=== PATIENT | male | born 1965 | race Caucasian/White ===

== ENCOUNTER 2021-02-22 12:14 | Inpatient (IN) | payer BC, SELFPAY ==
[2021-02-22 12:15] VITALS: BP 95/59; PULSE 68; RESP 20; TEMP 36; O2SAT 98; BMI 26.4
--- NOTE | 2021-02-22 13:09 | EKG12_ITS ---
Test Reason : Blood Pressure : / mmHG Vent. Rate : 063 BPM Atrial Rate : 063 BPM P-R Int : 146 ms QRS Dur : 102 ms QT Int : 482 ms P-R-T Axes : 015 046 015 degrees QTc Int : 493 ms Normal sinus rhythm Prolonged QT Abnormal ECG Confirmed by MARK ROWLAND, JOSÉ MIGUEL ([id number]), social media editor KIMBERLI ROJAS ([id number]) on 02/25/2021 8:52:13 AM Referred By: RILEY Confirmed By:JOSÉ MIGUEL FLORES MD
--- NOTE | 2021-02-22 13:10 | EDS_ITS ---
HPI History of Present Illness Chief Complaint: Substance Abuse Informant: patient and family Narrative Narrative: 55-year-old male presenting to the emergency department stating he has had cyclical vomiting for 1 week. He states that he has been medicating himself with alcohol. The patient is either an extraordinarily poor historian or does not wish to discuss his care because he provides a very slow 1-2 word answers and incomplete answers to open ended questions. Therefore I needed to use closed ended questions to complete any type of history on him. He last had alcohol rehab in 2019 but states it was a 12-step program so he did not follow through with it. He has been drinking at least 1/5 of hard alcohol and 12 pack of beer daily. The patient states that he has Protonix at home for when he starts to have cyclic vomiting. He denies any cannabis use. [facility] Medical History (Updated 02/22/21 @ 14:[address] Daniel Lam DO) Alcoholism Cyclic vomiting syndrome Home Medications amlodipine 10 mg PO DAILY 02/22/21 [History Last Taken Unknown] aspirin [Baby Aspirin] 81 mg PO DAILY 02/22/21 [History Last Taken Unknown] clopidogrel 75 mg PO DAILY 02/22/21 [History Last Taken Unknown] losartan-hydrochlorothiazide 1 tab PO DAILY 02/22/21 [History Last Taken Unknown] metoprolol tartrate 50 mg PO BID 02/22/21 [History Last Taken Unknown] nicotine (polacrilex) 2 mg BUCCAL Q2H 02/22/21 [History Last Taken Unknown] nicotine [Nicoderm CQ] 1 patch TRANSDERMAL Q24H 02/22/21 [History Last Taken Unknown] pantoprazole 40 mg PO DAILY 02/22/21 [History Last Taken Unknown] Allergy/AdvReac Type Severity Reaction Status Date / Time No Known Allergies Allergy Verified 02/22/21 12:16 Social History (Updated 02/22/21 @ 13:[address] Daniel Lam DO) current gender identity: male Smoking Status: Current every day smoker tobacco type: cigarettes alcohol intake: current alcohol intake frequency: 3 or more drinks per day Alcohol type: beer and hard liquor substance use type: does not use ROS ROS ED Constitutional Constitutional ED: Denies chills or weight loss Eyes Eyes: Denies change in vision or diplopia ENT ENT ED: Denies ear pain, rhinorrhea or sore throat Cardiovascular Cardiovascular: Denies chest pain, orthopnea, palpitations or racing heartbeat Respiratory/Chest Respiratory/Chest: Denies cough, dyspnea or orthopnea Gastrointestinal Gastrointestinal: Reports nausea and vomiting; Denies abdominal pain or diarrhea Genitourinary Genitourinary ED: Denies dysuria, hematuria or urinary frequency Musculoskeletal Musculoskeletal: Denies arthralgias or myalgias Integumentary Denies abscess or rash Neurologic Neurologic: Denies headache(s) or weakness Psychiatric Psychiatric: Denies anxiety, depression, suicidal ideation or suicidal thoughts Endocrine Endocrinology: Denies polydipsia, polyphagia or polyuria Allergic/Immunologic Allergic/Immunologic ED: Denies mouth swelling, tongue swelling or urticaria EXAM Physical Exam Const Vital Signs: 02/22/21 12:15 02/22/21 13:25 Temperature 96.8 F L 98 F Temperature Source Temporal Temporal Pulse Rate 68 61 Respiratory Rate 20 H 20 H Blood Pressure 95/59 L 114/80 Blood Pressure Mean 71 91 Blood Pressure Source Monitor Blood Pressure Position Sitting Blood Pressure Location Left Arm Pulse Ox 98 97 Oxygen Delivery Method Room Air Room Air Positive well nourished and well developed General Appearance ED: well developed HEENT Reports normocephalic, head/scalp atraumatic, TM's clear and moist mucous membranes Negative for trauma Tympanic Membrane ED: Yes TM's clear Eyes PERRL and EOMs intact bilaterally Neck no lymphadenopathy, supple and no JVD Resp normal respiratory effort and clear to auscultation bilaterally Cardio regular rate, regular rhythm and no murmurs GI normal to inspection, nondistended, normoactive bowel sounds and non-tender Palpation: soft Back/Spine no CVA tenderness and normal ROM Extremity normal to inspection General Extremety ED: Negative for edema General Extremity: Negative for edema Neuro oriented x3 and CN's II-XII intact bilaterally Sensorium / Orientation: alert Motor Exam: strength 5/5 throughout Psych mental status grossly normal Mood & Affect: Negative for depressed or tearful Skin no rashes or lesions noted and no wounds MDM MDM MDM Narrative Medical decision making narrative: Medical screening labs show a potassium of 2.9. I ordered 40 p.o. for this. Alcohol level 306. Liver enzymes shows ALT 104 AST of 108 total bili of 1.1. Lab Data Attestation: I reviewed the patient's lab results. Labs: Laboratory Results - last 24 hr 02/22/21 02/22/21 02/22/21 13:25 13:25 13:25 WBC 7.5 RBC 5.35 Hgb 15.4 Hct 44.0 MCV 82.2 MCH 28.8 MCHC 35.0 RDW Std Deviation 41.1 RDW Coeff of Stefanie 13.8 Plt Count 232 MPV 9.9 Immature Gran % (Auto) 0.500 Neut % (Auto) 77.6 H Lymph % (Auto) 14.4 L [place] % (Auto) 6.7 Eos % (Auto) 0.0 Baso % (Auto) 0.8 Absolute Neuts (auto) 5.8 Absolute Lymphs (auto) 1.08 Nucleated RBC % 0 PT INR Sodium 126 L Potassium 2.9 L Chloride 80 L Carbon Dioxide 29.0 Anion Gap 17 H BUN 17 Creatinine 1.13 Estim Creat Clear Calc 80.52 Est GFR (MDRD) Af Amer 87 Est GFR (MDRD) Non-Af 72 BUN/Creatinine Ratio 15.0 Glucose 98 Calcium 9.2 Total Bilirubin 1.10 H AST 108 H ALT 104 H Alkaline Phosphatase 63 Total Protein 7.7 Albumin 4.1 Globulin 3.6 Albumin/Globulin Ratio 1.1 Ethyl Alcohol 306.0 H* 02/22/21 13:50 WBC RBC Hgb Hct MCV MCH MCHC RDW Std Deviation RDW Coeff of Stefanie Plt Count MPV Immature Gran % (Auto) Neut % (Auto) Lymph % (Auto) [place] % (Auto) Eos % (Auto) Baso % (Auto) Absolute Neuts (auto) Absolute Lymphs (auto) Nucleated RBC % PT 12.1 INR 1.0 Sodium Potassium Chloride Carbon Dioxide Anion Gap BUN Creatinine Estim Creat Clear Calc Est GFR (MDRD) Af Amer Est GFR (MDRD) Non-Af BUN/Creatinine Ratio Glucose Calcium Total Bilirubin AST ALT Alkaline Phosphatase Total Protein Albumin Globulin Albumin/Globulin Ratio Ethyl Alcohol EKG Initial EKG: Attestation: I personally reviewed and interpreted this EKG as follows: Comments: Normal sinus rhythm with a ventricular rate of 63. Noted QT Discharge Plan Dx/Rx/DC Orders Clinical Impression: Acute hypokalemia, Cyclic vomiting syndrome, Alcohol intoxication Disposition Disposition: [facility]
[2021-02-22 13:25] VITALS: BP 114/80; PULSE 61; RESP 20; TEMP 36.6; O2SAT 97
[2021-02-22] MEDS: 0.9% Normal Saline 1,000 ML 999 ML IV (13:31)
[2021-02-22] MEDS: Ondansetron 4 MG/2 ML Vial IV ×2 (13:31→17:03)
[2021-02-22] MEDS: LORazepam 2 MG/ML Syringe 1 MG IV (13:32)
[2021-02-22 13:44] LABS: Absolute Lymphocyte Count 1.08 X10^3/uL (0.83-4.51); Absolute Neutrophil Count 5.8 X10^3/uL (2.0-7.7); Basophil# 0.06 X10^3/uL; Basophil% 0.8 % (0-1); Hemoglobin 15.4 g/dL (13.0-16.5); Lymphocyte # 1.08 X10^3/ul (0.83-4.51); Lymphocyte % 14.4 % (19-41); Mean Corpuscular Hgb 28.8 pg (27.0-32.0); Mean Corpuscular Volume 82.2 fL (80-94); Mean Platelet Vol. 9.9 fl (6.2-12.0); Monocyte% 6.7 % (0-10); NRBC Flagged by Analyzer 0 % (0-5); Neutrophil # 5.81 X10^3/uL (2.7-7.7); Neutrophil % 77.6 % (47-70); Platelet Count 232 K/mm3 (150-450); RBC Distribution Width CV 13.8 % (11.6-14.6); RBC Distribution Width SD 41.1 fl (35.1-43.9); Red Blood Count 5.35 M/mm3 (4.6-6.2); White Blood Count 7.5 K/mm3 (4.4-11.0)
[2021-02-22 14:01] LABS: ALB/GLOB Ratio 1.1 RATIO (0.9-2.4); AST(SGOT) 108 U/L (15-37); Alanine Aminotransfer ALT/SGPT 104 U/L (16-61); Albumin, Serum 4.1 g/dL (3.2-5.0); Alkaline Phosphatase 63 U/L (45-117); Anion Gap 17 (5-15); BUN 17 mg/dL (7-18); Calcium,Total 9.2 mg/dL (8.5-10.1); Chloride 80 mmol/L (98-107); Creatinine, Serum 1.13 mg/dL (0.70-1.30); EST Glomerular Filtration Rate 72 mL/min (>60); Est Glom Filt Rate - Afr Amer 87 mL/min (>60); Estimated Creatinine Clearance 80.52 ml/min; Globulin 3.6 g/dL (2.2-4.2); Glucose 98 mg/dL (74-106); Potassium 2.9 mmol/L (3.5-5.1); Protein, Total 7.7 g/dL (6.4-8.2); Sodium Level 126 mmol/L (136-145)
[2021-02-22 14:06] LABS: Prothrombin Time (Protime)PT. 12.1 SECONDS (11.7-14.9)
[2021-02-22] MEDS: Potassium Chloride Oral Tablet 20 MEQ 40 MEQ PO ×2 (14:40→22:42)
[2021-02-22 14:42] VITALS: PULSE 80; RESP 16; O2SAT 93
[2021-02-22 14:43] VITALS: BP 143/76; PULSE 74; RESP 18; TEMP 36.6; O2SAT 98
--- NOTE | 2021-02-22 14:51 | HP.PCM.HOS_ITS ---
HPI - General General Date of Admission: 02/22/21 Date of Service: 02/22/21 Chief Complaint: Alcohol detox HPI Narrative Mr. CALHOUN, is a 55 M who presented to the emergency department at [facility] on 02/22/2021 with a chief complaint of nausea and vomiting requesting acute alcohol detox. The patient states he also has a history of cyclic vomiting syndrome and has been vomiting and not eaten for approximately a week. He does however indicate he has been drinking daily and as of recently has been drinking at least 1/5 of gin and a half a 12 pack of 12 ounce beers daily. He has been through detox 4 times previously with the most recent being at [facility] 2 years ago after which he sustained approximately 8 months of sobriety. He states he has a family history of alcoholism in both his father and grandfather. His last drink was at 11 AM today. He reports he smokes approximately 1 pack of cigarettes a day but denies any other substance abuse. In the emergency department his vital signs are stable other than some mild elevated blood pressure. His CBC is unremarkable. His BMP shows hyponatremia with a sodium of 126, hypokalemia with a potassium of 2.9, hypochloremia with a chloride of 80, and an elevated anion gap with a normal serum creatinine. Transaminases are elevated with an AST of 108 and an ALT of 104 and a normal alk phos. His bilirubin is mildly elevated at 1.1. His serum alcohol level was 306.0. He will be admitted to medical surgical for acute alcohol detox. [facility] Medical History Alcoholism CAD (coronary artery disease) Cyclic vomiting syndrome GERD (gastroesophageal reflux disease) HTN (hypertension) Tobacco abuse Home Medications amlodipine 10 mg PO DAILY 02/22/21 [History Last Taken Unknown] aspirin [Baby Aspirin] 81 mg PO DAILY 02/22/21 [History Last Taken Unknown] clopidogrel 75 mg PO DAILY 02/22/21 [History Last Taken Unknown] losartan-hydrochlorothiazide 1 tab PO DAILY 02/22/21 [History Last Taken Unknown] metoprolol tartrate 50 mg PO BID 02/22/21 [History Last Taken Unknown] nicotine (polacrilex) 2 mg BUCCAL Q2H 02/22/21 [History Last Taken Unknown] nicotine [Nicoderm CQ] 1 patch TRANSDERMAL Q24H 10/23/21 [History Last Taken Unknown] pantoprazole 40 mg PO DAILY 02/22/21 [History Last Taken Unknown] Allergy/AdvReac Type Severity Reaction Status Date / Time No Known Allergies Allergy Verified 02/22/21 12:16 Family History (Updated 02/22/21 @ 14:[address] Darshana Donnelly, DO) Father Alcoholism Grandfather Alcoholism Other Diabetes Heart disease Hypertension no surgical history Social History (Updated 02/22/21 @ 14:[address] Darshana Donnelly, DO) current gender identity: male Smoking Status: Current every day smoker tobacco type: cigarettes alcohol intake: current alcohol intake frequency: 3 or more drinks per day Alcohol type: beer and hard liquor details: 1/5 of gin and 1/ 12 pack of beer daily substance use type: does not use ROS Constitutional Constitutional: Reports anorexia, fatigue, malaise and weakness; Denies change in weight, chills, fever(s), night sweats or other Eyes Eyes: Denies blurry vision, change in eye color, change in vision, discharge from eye(s), double vision, erythema, eye pain, loss of vision or other ENT HEENT: Denies abnormal hearing, dysphagia, ear pain, epistaxis, headache(s), hearing loss, nasal congestion, nasal discharge, post nasal drip, sinus pressur e, sore throat or other Cardiovascular Cardiovascular: Denies chest pain, claudication, dyspnea on exertion, edema, lightheadedness, orthopnea, palpitations, paroxysmal nocturnal dyspnea, rapid heart rate, syncope or other Respiratory/Chest Respiratory/Chest: Denies cough, dyspnea, excessive phlegm production, hemoptysis, productive cough, shortness of breath at rest, shortness of breath with exertion, wheezing or other Gastrointestinal Gastrointestinal: Reports nausea and vomiting; Denies abdominal pain, coffee ground emesis, constipation, diarrhea, dyspepsia, hematemesis, hematochezia, loose stools, melena or other Genitourinary Genitourinary: Denies burning urination, difficulty urinating, dysuria, hematuria, nocturia, urinary frequency, urinary hesitancy, urinary incontinence, urinary urgency or other Musculoskeletal Musculoskeletal: Denies arthralgias, back pain, joint pain, joint stiffness, j oint swelling, myalgias, neck pain or other Neurologic Neurologic: Denies abnormal gait, abnormal speech, confusion, disequilibrium, dizziness, focal weakness, headache(s), numbness, paresthesias, seizure-like activity, seizures, syncope, tingling, tremor(s) or other Psychiatric Psychiatric: Denies anxiety, depression, homicidal ideation, suicidal ideation or other Endocrine Endocrinology: Denies change in body appearance, cold intolerance, excessive sweating, heat intolerance, polydipsia, polyuria or other Hematologic/Lymphatic Hematologic/Lymphatic: Denies anemia, easy bleeding, easy bruising, lymph adenopathy or other Allergic/Immunologic Allergic/Immunologic: Denies rhinitis, hives, eczemia, asthma or other Vital Signs Vital Signs Vital Signs: 02/22/21 12:15 02/22/21 13:25 02/22/21 14:42 Temperature 96.8 F L 98 F Temperature Source Temporal Temporal Pulse Rate 68 61 80 Respiratory Rate 20 H 20 H 16 Blood Pressure 95/59 L 114/80 Blood Pressure Mean 71 91 Blood Pressure Source Monitor Blood Pressure Position Sitting Blood Pressure Location Left Arm Pulse Ox 98 97 93 Oxygen Delivery Method Room Air Room Air Room Air 02/22/21 14:43 Temperature 98 F Temperature Source Oral Pulse Rate 74 Respiratory Rate 18 Blood Pressure 143/76 H Blood Pressure Mean 98 Blood Pressure Source Blood Pressure Position Blood Pressure Location Pulse Ox 98 Oxygen Delivery Method Room Air Weight Weight: 86.183 kg Body Mass Index (BMI) 26.4 Physical Exam Const alert, oriented x3 and no apparent distress Constitutional Narrative: Middle-aged white male sitting up in bed, appears older than stated age, nontoxic General Appearance: cooperative HEENT normocephalic, head/scalp atraumatic, hearing grossly normal bilaterally, moist oral mucous membranes and oropharynx normal HEENT Narrative: Fair dentition with multiple fillings Mouth: oral and palatal mucosa normal Eyes PERRL, EOMs intact bilaterally and conjunctivae normal Eyes Narrative: Eyes are bloodshot, no scleral icterus Neck no lymphadenopathy, supple, no JVD and no carotid bruits Neck Narrative: Trachea midline with no thyroid enlargement Resp normal respiratory effort, no retractions, no use of accessory muscles and clear to auscultation bilaterally Resp Narrative: Diminished but clear Auscultation: Negative for crackles, rales, rhonchi or wheezes Cardio regular rate, regular rhythm, S1 normal heart sound, S2 normal heart sound, no murmurs, no rub, no gallops, no clicks and no JVD GI normal to inspection, nondistended, normoactive bowel sounds, soft to palpation, non-tender and non-distended; Negative for hepatosplenomegaly Extremity no clubbing, cyanosis or edema Peripheral Pulses: Yes pulses 2+ throughout Skin no rashes or lesions noted, no wounds, skin turgor normal, no jaundice, no petechiae and no mottling Neuro oriented x3, CN's II-XII intact bilaterally, moves all extremities and no focal motor deficits Sensorium / Orientation: alert, oriented to person, oriented to place and oriented to time Speech: speech normal Motor Exam: strength 5/5 throughout Psych affect normal Results Lab / Micro Data Attestation: I reviewed the patient's lab results. Result Diagrams: 02/22/21 13:25 02/22/21 13:25 Labs: Laboratory Results - last 24 hr 02/22/21 13:25: WBC 7.5, RBC 5.35, Hgb 15.4, Hct 44.0, MCV 82.2, MCH 28.8, MCHC 35.0, RDW Std Deviation 41.1, RDW Coeff of Stefanie 13.8, Plt Count 232, MPV 9.9, Immature Gran % (Auto) 0.500, Neut % (Auto) 77.6 H, Lymph % (Auto) 14.4 L, [place] % (Auto) 6.7, Eos % (Auto) 0.0, Baso % (Auto) 0.8, Absolute Neuts (auto) 5.8, Absolute Lymphs (auto) 1.08, Nucleated RBC % 0 02/22/21 13:25: Sodium 126 L, Potassium 2.9 L, Chloride 80 L, Carbon Dioxide 29.0, Anion Gap 17 H, BUN 17, Creatinine 1.13, Estim Creat Clear Calc 80.52, Est GFR (MDRD) Af Amer 87, Est GFR (MDRD) Non-Af 72, BUN/Creatinine Ratio 15.0, Glucose 98, Calcium 9.2, Total Bilirubin 1.10 H, AST 108 H, ALT 104 H, Alkaline Phosphatase 63, Total Protein 7.7, Albumin 4.1, Globulin 3.6, Albumin/Globulin Ratio 1.1 02/22/21 13:25: Ethyl Alcohol 306.0 H* 02/22/21 13:50: PT 12.1, INR 1.0 Assessment & Plan Assessment/Plan (1) Alcohol withdrawal: (2) Alcohol intoxication: (3) Alcoholic hepatitis: (4) Acute hypokalemia: (5) Hyponatremia: (6) Increased anion gap metabolic acidosis: (7) Cyclic vomiting syndrome: PLAN: Acute alcohol withdrawal -Start phenobarbital taper -Thiamine and folate -[facility] protocol with as needed oral Ativan -Patient was acutely intoxicated on admission with a blood alcohol level of 306 -180 consultation for Wednesday Acute alcoholic hepatitis -Anticipate LFT should improve with abstinence -Repeat in a.m. Acute hyponatremia/hypochloremia -P.o. intake has been poor and suspect this is hypovolemic hyponatremia -May also have some baseline hyponatremia from beer [place] -IV fluids with LR at 100 cc/h -Repeat lab in a.m. -If sodium remains low despite IV fluids may need to consider discontinuing hydrochlorothiazide -Patient without any neurological manifestations of hyponatremia Acute hyponatremia -40 mEq of p.o. potassium was given in the emergency department -We will dose another 40 mEq on the medical floor this evening -Repeat lab in a.m. -Check a.m. magnesium level Elevated anion gap -Anion gap elevation is likely related to this-->-Blood alcohol level was 306 on admission -We will repeat in a.m. -IV fluids -Patient denies drinking anything except ethyl alcohol Hypertension -Continue home amlodipine -Continue losartan and hydrochlorothiazide -May need to adjust and discontinue HCTZ if sodium remains low -Continue home metoprolol CAD -Continue aspirin/Plavix -Continue metoprolol and losartan Cyclical vomiting syndrome/GERD -Continue Protonix -If vomiting is a persistent issue here may consider GI consult -Patient has been able to drink alcohol but states he is not been able to eat food -Is high risk for esophageal disorders including esophageal carcinoma with his history of tobacco and alcohol abuse DVT prophylaxis -Early ambulation protocol CODE STATUS -Full code Charges/Coding Visit Charges Inpatient E&M: 61544 Init Hosp L3
[2021-02-22 15:19] VITALS: BMI 26.7
--- NOTE | 2021-02-22 15:19 | PCS.PANDOC ---
PANDEMIC DOCUMENTATION INITIATED: Date: 12/16/2020 Time: 190
[2021-02-22 15:48] VITALS: O2SAT 94
[2021-02-22] MEDS: Phenobarbital 32.4 MG Tablet 64.8 MG PO ×2 (16:58→20:20)
[2021-02-22] MEDS: Lactated Ringers 1,000 ML 100 ML IV (17:03)
[2021-02-22] MEDS: 0.9% Saline Lock 10 ML Syringe IV (17:04)
[2021-02-22] MEDS: Dicyclomine 10 MG Capsule 20 MG PO (17:35)
[2021-02-22] MEDS: LORazepam 1 MG Tablet 2 MG PO (17:35)
[2021-02-22 20:13] VITALS: BP 108/71; PULSE 88; RESP 18; TEMP 36.6; O2SAT 100
[2021-02-22] MEDS: Gabapentin 300 MG Capsule PO (20:25)
[2021-02-22 20:55] LABS: Amphetamine Urine VISTA NEGATIVE (<1000 ng/mL); Barbiturate Urine VISTA NEGATIVE (< 200 ng/mL); Benzodiazepine Urine VISTA NEGATIVE (< 200 ng/mL); Cocaine Urine VISTA NEGATIVE (< 300 ng/mL); Ecstacy Urine VISTA NEGATIVE (< 500 ng/mL); Methadone Urine VISTA NEGATIVE (< 300 ng/mL); PCP Urine VISTA NEGATIVE (< 25 ng/mL); THC Urine VISTA NEGATIVE (< 50 ng/mL); Vista UDS pH Range 6
[2021-02-22] MEDS: Mag Hydrox/Al Hydrox/Simeth 30 ML UDC 15 ML PO (22:42)
[2021-02-22] MEDS: traZODone 100 MG Tablet PO (22:47)
[2021-02-23] VITALS (8 sets, daily range): BP systolic 141–162; BP diastolic 71–98; PULSE 69–95; RESP 16–18; TEMP 36.6–37.1; O2SAT 92–99
[2021-02-23] MEDS: Phenobarbital 32.4 MG Tablet 64.8 MG PO ×6 (00:40→19:54)
[2021-02-23] MEDS: Lactated Ringers 1,000 ML 100 ML IV (02:42)
[2021-02-23 07:21] LABS: AST(SGOT) 133 U/L (15-37); Alanine Aminotransfer ALT/SGPT 107 U/L (16-61); Albumin, Serum 3.1 g/dL (3.2-5.0); Alkaline Phosphatase 52 U/L (45-117); Anion Gap 8 (5-15); BUN 13 mg/dL (7-18); BUN/Creat Ratio 17.3 RATIO (10-20); Calcium,Total 8.2 mg/dL (8.5-10.1); Chloride 85 mmol/L (98-107); Creatinine, Serum 0.75 mg/dL (0.70-1.30); EST Glomerular Filtration Rate 116 mL/min (>60); Est Glom Filt Rate - Afr Amer 140 mL/min (>60); Estimated Creatinine Clearance 121.32 ml/min; Glucose 104 mg/dL (74-106); Magnesium 2.2 mg/dL (1.6-2.6); Phosphorus 2.8 mg/dL (2.5-4.9); Potassium 3.1 mmol/L (3.5-5.1); Protein, Total 6.1 g/dL (6.4-8.2); Sodium Level 125 mmol/L (136-145); Thyroid Stim Hormone (TSH) 1.14 uIU/mL (0.358-3.74)
[2021-02-23] MEDS: Folic Acid 1 MG Tablet PO (08:47)
[2021-02-23] MEDS: Pantoprazole Sodium 40 MG Tablet PO (08:47)
[2021-02-23] MEDS: Thiamine Hydrochloride 100 MG Tablet PO (08:47)
[2021-02-23] MEDS: Losartan Potassium 100 MG Tablet PO (11:05)
[2021-02-23] MEDS: Clopidogrel Bisulfate 75 MG Tablet PO (11:05)
[2021-02-23] MEDS: Metoprolol Tartrate 50 MG Tablet PO ×2 (11:05→21:56)
[2021-02-23] MEDS: hydroCHLOROthiazide 25 MG Tablet PO (11:05)
[2021-02-23] MEDS: amLODIPine 10 MG Tablet PO (11:05)
[2021-02-23] MEDS: Aspirin 81 MG TAB.CHEW PO (11:06)
[2021-02-23] MEDS: Nicotine Polacrilex 2 MG GUM PO ×4 (11:07→19:54)
--- NOTE | 2021-02-23 11:26 | PN.HOSP_ITS ---
Subjective Subjective Patient states he is feeling well. Has no signs of withdrawal at this time. Denies any abdominal pain, nausea, or vomiting currently. Denying any needs or complaints currently. Objective Data Objective Data Vital Signs: Vital Signs Temp Pulse Resp BP Pulse Ox 97.8 F 95 16 159/87 H 92 02/23/21 08:54 02/23/21 11:05 02/23/21 08:54 02/23/21 08:54 02/23/21 08:54 Oxygen Delivery Method Room Air Weight: 87.1 kg Body Mass Index (BMI) 26.7 Intake & Output: Intake and Output for Last 24 Hours 02/21/21 02/22/21 02/23/21 23:59 23:59 23:59 Intake Total 1200 / 1200 2064 Balance 1200 / 1200 2064 Lab / Micro Data Result Diagrams: 02/22/21 13:25 02/23/21 06:43 Labs: Laboratory Results - last 24 hr 02/22/21 13:25: WBC 7.5, RBC 5.35, Hgb 15.4, Hct 44.0, MCV 82.2, MCH 28.8, MCHC 35.0, RDW Std Deviation 41.1, RDW Coeff of Stefanie 13.8, Plt Count 232, MPV 9.9, Immature Gran % (Auto) 0.500, Neut % (Auto) 77.6 H, Lymph % (Auto) 14.4 L, [place] % (Auto) 6.7, Eos % (Auto) 0.0, Baso % (Auto) 0.8, Absolute Neuts (auto) 5.8, Absolute Lymphs (auto) 1.08, Nucleated RBC % 0 02/22/21 13:25: Sodium 126 L, Potassium 2.9 L, Chloride 80 L, Carbon Dioxide 29.0, Anion Gap 17 H, BUN 17, Creatinine 1.13, Estim Creat Clear Calc 80.52, Est GFR (MDRD) Af Amer 87, Est GFR (MDRD) Non-Af 72, BUN/Creatinine Ratio 15.0, Glucose 98, Calcium 9.2, Total Bilirubin 1.10 H, AST 108 H, ALT 104 H, Alkaline Phosphatase 63, Total Protein 7.7, Albumin 4.1, Globulin 3.6, Albumin/Globulin Ratio 1.1 02/22/21 13:25: Ethyl Alcohol 306.0 H* 02/22/21 13:50: PT 12.1, INR 1.0 02/22/21 20:10: Urine Opiates Screen NEGATIVE, Urine Methadone Screen NEGATIVE, Ur Barbiturates Screen NEGATIVE, Ur Phencyclidine Scrn NEGATIVE, Ur Amphetamines Screen NEGATIVE, U Methamphetamin-MDMA NEGATIVE, U Benzodiazepines Scrn NEGATIVE, Urine Cocaine Screen NEGATIVE, U Cannabinoids Screen NEGATIVE, Ur Drug Screen Comment 02/23/21 06:43: Sodium 125 L, Potassium 3.1 L, Chloride 85 L, Carbon Dioxide 32.0, Anion Gap 8, BUN 13, Creatinine 0.75, Estim Creat Clear Calc 121.32, Est GFR (MDRD) Af Amer 140, Est GFR (MDRD) Non-Af 116, BUN/Creatinine Ratio 17.3, Glucose 104, Calcium 8.2 L, Phosphorus 2.8, Magnesium 2.2, Total Bilirubin 1.70 H, AST 133 H, ALT 107 H, Alkaline Phosphatase 52, Total Protein 6.1 L, Albumin 3.1 L, Globulin 3.0, Albumin/Globulin Ratio 1.0, TSH 1.14 Physical Exam Const alert, oriented x3 and no apparent distress Constitutional Narrative: Middle-aged white male lying down in bed, nursing at bedside, appears older than stated age, nontoxic and appears comfortable General Appearance: cooperative Exam Limitations: no limitations Nutritional Appearance: overweight HEENT normocephalic, head/scalp atraumatic, hearing grossly normal bilaterally and moist oral mucous membranes Head and Scalp: normocephalic Resp normal respiratory effort, no retractions, no use of accessory muscles and clear to auscultation bilaterally Resp Narrative: Diminished but clear Auscultation: Negative for crackles, rales, rhonchi or wheezes Cardio regular rate, regular rhythm, S1 normal heart sound, S2 normal heart sound, no m urmurs, no rub, no gallops, no clicks and no JVD GI normal to inspection, nondistended, normoactive bowel sounds, soft to palpation, non-tender and non-distended; Negative for hepatosplenomegaly Extremity no clubbing, cyanosis or edema Peripheral Pulses: Yes pulses 2+ throughout Neuro oriented x3 and moves all extremities Sensorium / Orientation: alert Speech: speech normal Assessment & Plan Assessment/Plan (1) Alcohol withdrawal: (2) Alcohol intoxication: (3) Alcoholic hepatitis: (4) Acute hypokalemia: (5) Hyponatremia: (6) Increased anion gap metabolic acidosis: (7) Cyclic vomiting syndrome: PLAN: Acute alcohol withdrawal -phenobarbital taper -Thiamine and folate -[facility] protocol with as needed oral Ativan -Patient was acutely intoxicated on admission with a blood alcohol level of 306 -180 consultation is pending for tomorrow Acute alcoholic hepatitis -Anticipate LFT should improve with abstinence -Slight increase in last 24 hours with bilirubin up as well -We will repeat in a.m. and if LFTs remain elevated may need to consider hepatitis studies Acute hyponatremia/hypochloremia -P.o. intake has been poor and suspect this is hypovolemic hyponatremia -May also have some baseline hyponatremia from beer pot[place]ia -Discontinue IV fluids -Hold hydrochlorothiazide -Check TSH, urine and serum osmolality, urine sodium, uric acid for further work-up -If laboratory data consistent with SIADH will start a fluid restriction -Repeat BMP -Patient without any neurological manifestations of hyponatremia Acute hypokalemia -patient received 80 mEq of potassium yesterday -We will repeat 80 mEq today and repeat lab in a.m. -Repeat lab in a.m. -Mag levels within normal limits Elevated anion gap -Resolved -Secondary to acute ethyl alcohol intoxication on admission Hypertension -Continue home amlodipine -Continue losartan but will stop hydrochlorothiazide given continued hyponatremia -Will not add anything at this time but may need to consider depending on blood pressures -Continue home metoprolol PVD -Patient has had stents placed in his leg arteries in the past -Continue aspirin/Plavix -Continue metoprolol and losartan Cyclical vomiting syndrome/GERD -Continue Protonix -If vomiting is a persistent issue here may consider GI consult--> so far patient has had no abdominal pain nausea or vomiting since admission -Patient has been able to drink alcohol but states he is not been able to eat f ood -Is high risk for esophageal disorders including esophageal carcinoma with his history of tobacco and alcohol abuse DVT prophylaxis -Early ambulation protocol CODE STATUS -Full code
[2021-02-23 12:49] LABS: Uric Acid 5.4 mg/dL (3.5-7.2)
[2021-02-23 12:52] LABS: Osmolality, Serum 266 mOsm/KG (275-295)
[2021-02-23 13:41] LABS: Osmolality, Urine 235 mOsm/KG
[2021-02-23 13:42] LABS: Urine Sodium 70 mmol/L (Not Establ.)
[2021-02-23] MEDS: Potassium Chloride Oral Tablet 20 MEQ 40 MEQ PO (17:22)
[2021-02-23] MEDS: LORazepam 1 MG Tablet 2 MG PO (17:30)
[2021-02-23] MEDS: Mag Hydrox/Al Hydrox/Simeth 30 ML UDC 15 ML PO (17:34)
--- NOTE | 2021-02-23 18:57 | NURSING ---
spoke with mother for an update. according to pt and mom- pt needs to call work on wednesday to let them know of him not coming in. pt works at [employer] in [place]. pt and family does not have the number- it is in pts phone that is locked in the totes. pt also needs to d/c by 12 on d/t the fact he has to get his daughter of the bus.
[2021-02-24] MEDS: Phenobarbital 32.4 MG Tablet 64.8 MG PO ×4 (00:26→12:22)
[2021-02-24 03:08] VITALS: BP 153/92; PULSE 63; RESP 18; TEMP 36.6; O2SAT 92
[2021-02-24] MEDS: Potassium Chloride Oral Tablet 20 MEQ 40 MEQ PO (08:08)
[2021-02-24] MEDS: Aspirin 81 MG TAB.CHEW PO (08:08)
[2021-02-24] MEDS: Folic Acid 1 MG Tablet PO (08:08)
[2021-02-24 08:09] LABS: AST(SGOT) 125 U/L (15-37); Alanine Aminotransfer ALT/SGPT 124 U/L (16-61); Albumin, Serum 3.2 g/dL (3.2-5.0); Alkaline Phosphatase 60 U/L (45-117); Anion Gap 8 (5-15); BUN 7 mg/dL (7-18); BUN/Creat Ratio 9.5 RATIO (10-20); Bilirubin, Direct 0.38 mg/dL (0.00-0.30); Calcium,Total 8.4 mg/dL (8.5-10.1); Chloride 89 mmol/L (98-107); Creatinine, Serum 0.74 mg/dL (0.70-1.30); EST Glomerular Filtration Rate 118 mL/min (>60); Est Glom Filt Rate - Afr Amer 142 mL/min (>60); Estimated Creatinine Clearance 122.96 ml/min; Globulin 2.6 g/dL (2.2-4.2); Glucose 94 mg/dL (74-106); Potassium 3.4 mmol/L (3.5-5.1); Protein, Total 5.8 g/dL (6.4-8.2); Sodium Level 129 mmol/L (136-145); Thyroid Stim Hormone (TSH) 1.85 uIU/mL (0.358-3.74)
[2021-02-24] MEDS: Thiamine Hydrochloride 100 MG Tablet PO (08:09)
[2021-02-24] MEDS: Nicotine Polacrilex 2 MG GUM PO ×2 (08:11→14:49)
[2021-02-24] MEDS: hydrOXYzine PAM 25 MG Capsule 50 MG PO (08:12)
[2021-02-24 10:02] VITALS: PULSE 74
[2021-02-24] MEDS: Losartan Potassium 100 MG Tablet PO (10:02)
[2021-02-24] MEDS: Clopidogrel Bisulfate 75 MG Tablet PO (10:02)
[2021-02-24] MEDS: Pantoprazole Sodium 40 MG Tablet PO (10:02)
[2021-02-24] MEDS: amLODIPine 10 MG Tablet PO (10:02)
[2021-02-24] MEDS: Metoprolol Tartrate 50 MG Tablet PO (10:02)
[2021-02-24 10:36] VITALS: BP 159/95; PULSE 84; RESP 18; TEMP 36.7; O2SAT 94
--- NOTE | 2021-02-24 12:33 | PCM.DC.SUM ---
Providers Date of Admission: 02/22/21 Date of Discharge: 02/24/21 Primary Care Physician: Dr. Tarun Arechiga MD Reason For Visit: ETOH DETOX Diagnosis Discharge Diagnosis (1) Alcohol withdrawal: Status: Acute Code(s): F10.239 - Alcohol dependence with withdrawal, unspecified Qualifiers: Complication of substance-induced condition: uncomplicated Qualified Code(s): F10.230 - Alcohol dependence with withdrawal, uncomplicated (2) Alcohol intoxication: Status: Acute Code(s): F10.929 - Alcohol use, unspecified with intoxication, unspecified Qualifiers: Complication of substance-induced condition: uncomplicated Qualified Code(s): F10.920 - Alcohol use, unspecified with intoxication, uncomplicated (3) Alcoholic hepatitis: Status: Acute Code(s): K70.10 - Alcoholic hepatitis without ascites Qualifiers: Ascites presence: unspecified Qualified Code(s): K70.10 - Alcoholic hepatitis without ascites (4) Acute hypokalemia: Status: Acute Code(s): E87.6 - Hypokalemia (5) Hyponatremia: Status: Acute Code(s): E87.1 - Hypo-osmolality and hyponatremia (6) Increased anion gap metabolic acidosis: Status: Acute Code(s): E87.2 - Acidosis (7) Cyclic vomiting syndrome: Status: Acute Code(s): R11.15 - Cyclical vomiting syndrome unrelated to migraine Medications at Discharge Home Medications amlodipine 10 mg PO DAILY 02/22/21 aspirin [Baby Aspirin] 81 mg PO DAILY 02/22/21 clopidogrel 75 mg PO DAILY 02/22/21 losartan-hydrochlorothiazide 1 tab PO DAILY 02/22/21 metoprolol tartrate 50 mg PO BID 02/22/21 nicotine (polacrilex) 2 mg BUCCAL Q2H 02/22/21 nicotine [Nicoderm CQ] 1 patch TRANSDERMAL Q24H 02/22/21 pantoprazole 40 mg PO DAILY 02/22/21 Hospital Course Operations None Procedures None Summary of Care Provided Minutes Spent on Discharge: 25 Hospital Course: 55-year-old male with past medical history of chronic alcohol use disorder, hypertension who presents with nausea and vomiting and requested for acute alcohol detox. Patient stated that he has history of cyclical vomiting syndrome and has been vomiting for most a week. He has been drinking daily, about 1/5 of gin and half of 12 pack of 12 ounce beers daily. He was found to have hyponatremia sodium 126, potassium was 2.9, chloride of 80. His transaminases were slightly elevated. His admitting alcohol level was 306. Patient was admitted to the [facility] floor and managed on acute alcohol withdrawal protocol. Patient had his electrolytes replaced. His liver enzymes were monitored and appeared to be decreasing with abstinence from alcohol. Patient was seen in the day of his discharge. He refused to work with the addiction counselor. He signed out AGAINST MEDICAL ADVICE. Physical Exam Narrative See progress note of the day Weight / BMI Weight Weight: 87.1 kg Body Mass Index (BMI) 26.7 ABG / Lab / Microbiology Data Result Diagrams: 02/22/21 13:25 02/24/21 05:42 Laboratory: Laboratory Results - last 24 hr 02/24/21 05:42: Sodium 129 L, Potassium 3.4 L, Chloride 89 L, Carbon Dioxide 32.0, Anion Gap 8, BUN 7, Creatinine 0.74, Estim Creat Clear Calc 122.96, Est GFR (MDRD) Af Amer 142, Est GFR (MDRD) Non-Af 118, BUN/Creatinine Ratio 9.5 L, Glucose 94, Calcium 8.4 L, Total Bilirubin 0.90, Direct Bilirubin 0.38 H, AST 125 H, ALT 124 H, Alkaline Phosphatase 60, Total Protein 5.8 L, Albumin 3.2, Globulin 2.6, TSH 1.85 Meaningful Use Info Meaningful Use Diagnoses (Choose all that apply): None applicable Discharge Plan Admission Admit Date/Time: 02/22/21 14:27 Attending Provider: Lu Rodney Primary Care Provider: Tarun Arechiga Discharge Orders/Prescriptions Prescriptions: No Action nicotine (polacrilex) 2 mg Gum 2 mg BUCCAL Q2H RF: 0 clopidogrel 75 mg tablet 75 mg PO DAILY RF: 0 losartan-hydrochlorothiazide 100-25 mg tablet 1 tab PO DAILY RF: 0 amlodipine 10 mg tablet 10 mg PO DAILY RF: 0 pantoprazole 40 mg tablet,delayed release (DR/EC) 40 mg PO DAILY RF: 0 metoprolol tartrate 50 mg tablet 50 mg PO BID RF: 0 nicotine [Nicoderm CQ] 21 mg/24 hr Patch 24 Hour 1 patch TRANSDERMAL Q24H RF: 0 aspirin [Baby Aspirin] 81 mg Tablet,Chewable 81 mg PO DAILY RF: 0 Referrals / Follow Up: Tarun Arechiga MD [Primary Care Provider] - [facility] Doctor,Out of [NON-STAFF] - Disposition Disposition (needs filled in before D/C Order can be placed): Against Medical Advice Charges/Coding Visit Charges Inpatient E&M: 84740 Disch Hosp
--- NOTE | 2021-02-24 13:04 | PN.HOSP_ITS ---
Subjective Subjective Follow-up on acute alcohol withdrawal: Patient was seen and examined. Denied any new complaint. Feels improved. Objective Data Objective Data Vital Signs: Vital Signs Temp Pulse Resp BP Pulse Ox 98.1 F 84 18 159/95 H 94 02/24/21 10:36 02/24/21 10:36 02/24/21 10:36 02/24/21 10:36 02/24/21 10:36 Oxygen Delivery Method Room Air Weight: 87.1 kg Body Mass Index (BMI) 26.7 Intake & Output: Intake and Output for Last 24 Hours 02/22/21 02/23/21 02/24/21 23:59 23:59 23:59 Intake Total 1200 / 1200 3878.33 / 3878.33 1550 / 1550 Balance 1200 / 1200 3878.33 / 3878.33 1550 / 1550 Lab / Micro Data Result Diagrams: 02/22/21 13:25 02/24/21 05:42 Labs: Laboratory Results - last 24 hr 02/23/21 13:00: Urine Osmolality 235 02/23/21 13:00: Ur Random Sodium 70 02/24/21 05:42: Sodium 129 L, Potassium 3.4 L, Chloride 89 L, Carbon Dioxide 32.0, Anion Gap 8, BUN 7, Creatinine 0.74, Estim Creat Clear Calc 122.96, Est GFR (MDRD) Af Amer 142, Est GFR (MDRD) Non-Af 118, BUN/Creatinine Ratio 9.5 L, Glucose 94, Calcium 8.4 L, Total Bilirubin 0.90, Direct Bilirubin 0.38 H, AST 125 H, ALT 124 H, Alkaline Phosphatase 60, Total Protein 5.8 L, Albumin 3.2, Globulin 2.6, TSH 1.85 Physical Exam Narrative Physical exam: General: Alert, Oriented x3, Cooperative, No apparent distress, Well developed HEENT: Atraumatic Oral: Moist Mucosa Neck: Supple Lungs: Clear to auscultation Cardiovascular: HS I+II, regular, no murmurs Abdomen: Bowel Sounds Present, Soft, Non Tender Extremities: No edema Assessment & Plan Assessment/Plan (1) Alcohol withdrawal: QUALIFIERS: Complication of substance-induced condition: uncomplicated Qualified Code(s): F10.230 - Alcohol dependence with withdrawal, uncomplicated (2) Alcohol intoxication: QUALIFIERS: Complication of substance-induced condition: uncompl icated Qualified Code(s): F10.920 - Alcohol use, unspecified with intoxication, uncomplicated (3) Alcoholic hepatitis: QUALIFIERS: Ascites presence: unspecified Qualified Code(s): K70. 10 - Alcoholic hepatitis without ascites (4) Acute hypokalemia: (5) Hyponatremia: (6) Increased anion gap metabolic acidosis: (7) Cyclic vomiting syndrome: PLAN: 1. Acute alcohol withdrawal, proving, continue on phenobarbital withdrawal protocol 2. Acute alcoholic hepatitis, improving, will trend 3. Acute hyponatremia/hypochloremia, slowly improving Hydrochlorothiazide held TSH is 1.85, urine osmolarity is 235, urine sodium is 70 Likely secondary to be hypomagnesemia Will continue to trend 4. Acute hypokalemia, replaced 5. Hypertension, uncontrolled, Will increase metoprolol to 75 mg p.o. twice daily and continue on amlodipine 10 mg p.o. daily, losartan 100 mg p.o. daily 6. Chronic medical conditions including PAD/cyclical vomiting syndrome/GERD remained stable Charges/Coding Visit Charges Inpatient E&M: 96835 Subs Hosp L2
--- NOTE | 2021-02-24 15:22 | ADDICTION ---
Pt was seen by [facility] Navigator over the weekend. Paper documentation filled out. Pt expressed frustration at not being able to use a phone to contact work and family. Pt was reminded by TW and nursing staff that it was on the contract he signed when he admitted to [facility] that he was not able to have phone/outside contact. TW inquired on whether Pt wanted resources for the [place] area to f/u. Pt stated resources are easily accessible, I don't need to be carrying around a book. Pt stated I can't focus on the future when I don't know what's happening when I get out, referring to not being able to call off work. Pt ended up requesting literature/resources/meeting and TW provided. Pt unwilling to make f/u appt at this time. Pt wants to speak with nursing staff about ramifications of leaving AMA.
--- NOTE | 2021-02-24 15:38 | NURSING ---
PT RESTING IN BED. HE IS SEEN BY [employer] PERSONNEL. HE STATES HE WAS TOLD THAT HE WAS GOING TO HAVE ARRANGEMENTS MADE TODAY ABOUT HIS WORK AND HIS PET AND HIS DAUGHTER. PT WAS ASKED WHAT DID HE UNDERSTAND WHEN HE WILLINGLY DECIDED TO THE PROGRAM..HE FUMBLES FOR WORDS AND EXPLANATIONS. HE STATES HE CANNOT STAY ANOTHER NIGHT HERE. HE SIGNED AMA PAPERS AND PHYSICIAN IS NOTIFIED.
== END 2021-02-24 15:47 | disposition left against medical advice (07) | DRG 894 ==
LOC: ED 14:43 → MS3 14:57
PROVIDERS: Admitting Provider Internal Medicine; Emergency Provider Emergency Medicine; PCP Family Medicine; Visit Provider Internal Medicine
DX: F10.230 Alcohol dependence with withdrawal, uncomplicated (principal); E87.1 Hypo-osmolality and hyponatremia; F10.920 Alcohol use, unspecified with intoxication, uncomplicated; Y90.9 Presence of alcohol in blood, level not specified; K70.10 Alcoholic hepatitis without ascites; I73.9 Peripheral vascular disease, unspecified; E87.6 Hypokalemia; R11.15 Cyclical vomiting syndrome unrelated to migraine; E87.8 Other disorders of electrolyte and fluid balance, not elsewhere classified; I10 Essential (primary) hypertension; I25.10 Atherosclerotic heart disease of native coronary artery without angina pectoris; Z53.29 Procedure and treatment not carried out because of patient's decision for other reasons; E11.9 Type 2 diabetes mellitus without complications; K21.9 Gastro-esophageal reflux disease without esophagitis; Z23 Encounter for immunization; Z79.82 Long term (current) use of aspirin; Z79.899 Other long term (current) drug therapy; F17.210 Nicotine dependence, cigarettes, uncomplicated
CPT/HCPCS: 36415; 80048; 80053; 80076; 80307; 82077; 83735; 83930; 83935; 84100; 84300; 84443; 84550; 85025; 85610; 93005; 99284; 99406; J7030; J7120; A4216; J2405